=== PATIENT | female | born 1990 | race Caucasian/White ===

== ENCOUNTER 2023-07-19 09:46 | Emergency (ER) | payer OTHER ==
[2023-07-19 09:53] VITALS: BP 100/65; PULSE 85; RESP 18; TEMP 98.4; BMI 33.8
[2023-07-19] MEDS ORDERED: ACETAMINOPHEN 500 MG TABLET (FP) PO ONE (10:41)
[2023-07-19] MEDS ORDERED: ACETAMINOPHEN 500 MG TABLET (FP) ONE (11:11)
== END 2023-07-19 13:01 | disposition home or self-care (01) ==
LOC: JERFT 09:46
DX: R09.81 Nasal congestion (principal); R07.0 Pain in throat; R51.9 Headache, unspecified; J06.9 Acute upper respiratory infection, unspecified; Z20.822 Contact with and (suspected) exposure to COVID-19
CPT/HCPCS: 0241U-QW; 99283-25

== ENCOUNTER 2024-05-03 11:45 | Emergency (ER) | payer OTHER ==
[2024-05-03 12:00] VITALS: BP 107/70; PULSE 56; RESP 20; TEMP 97.6; BMI 31.8
[2024-05-03] MEDS: HYDROCORTISONE 0.5% TOPICAL CREAM 30 GM TUBE TP ONE (13:36)
[2024-05-03 14:54] LABS: BASO % 0.3 % (0-2.0); EOS % 5.3 % (0-4.5); HEMOGLOBIN 12.4 GM/dL (10.7-15.3); LYMPH % 29.4 % (8-40); MCHC 33.5 g/dl (32.0-36.0); MEAN CELL VOLUME 80.5 fl (80-96); MEAN PLT VOLUME 8.4 fl (7.5-11.1); MONO % 6.7 % (3.8-10.2); NEUT % 58.3 % (42.8-82.8); PLATELET COUNT 382 10^3/uL (134-434); RDW 14.3 % (11.6-15.6); WHITE BLOOD COUNT 7.1 K/mm3 (4.0-10.0)
[2024-05-03 15:11] LABS: POTASSIUM 3.8 mmol/L (3.5-5.1)
[2024-05-03 15:13] LABS: BLOOD UREA NITROGEN 8.3 mg/dL (7-18); CALCIUM 9.4 mg/dL (8.5-10.1)
[2024-05-03 15:16] LABS: CREATININE 0.6 mg/dL (0.55-1.3)
[2024-05-03 15:18] LABS: BILIRUBIN,TOTAL 0.8 mg/dL (0.2-1); TOT PROT 7.4 g/dl (6.4-8.2)
[2024-05-03 16:22] LABS: HIV INTERPRETATION NEGATIVE (NEGATIVE)
== END 2024-05-03 16:04 | disposition home or self-care (01) ==
LOC: JERFT 11:45
DX: R07.89 Other chest pain (principal); R42 Dizziness and giddiness; R06.02 Shortness of breath; L50.8 Other urticaria; R21 Rash and other nonspecific skin eruption
CPT/HCPCS: 36415; 71046-TC-FY; 80053; 84484; 84703; 85025; 86803; 87389; 93005; 93010; 99285-25